=== PATIENT | female | born 1990 | race Caucasian/White ===

== ENCOUNTER 2016-05-31 08:32 | Emergency (ER) | payer SELFPAY ==
[2016-05-31 08:42] VITALS: BP 126/86
--- NOTE | 2016-05-31 09:14 | UC ---
Respiratory Complaint HPI - HPI Summary HPI Summary: SEEN HERE 10 DAYS AGO AND TREATED FOR TONSILLITIS WITH AMOXICILLIN AND PREDNISOLONE. WENT TO ER SEVERAL DAYS LATER STATING NO IMPROVEMENT. DIAGNOSED WITH PHARYNGITIS AND ADVISED TO CONTINUE CURRENT MGMT. PT HERE TODAY STATING SHE HAS PERSISTENT DRY HACKING COUGH. ALSO THINKS SHE HAD THRUSH BUT SX NOW IMPROVED. - History of Current Complaint Chief Complaint: UCRespiratory Stated Complaint: COUGH Time Seen by Provider: 05/31/16 09:13 Hx Obtained From: Patient Hx Last Menstrual Period: 05/19/16 Onset/Duration: Gradual Onset, Lasting Days, Still Present Timing: Constant Severity Initially: Moderate Severity Currently: Moderate Pain Intensity: 3 Pain Scale Used: 0-10 Numeric Character: Cough: Nonproductive Aggravating Factors: Nothing Alleviating Factors: Nothing - Allergies/Home Medications Allergies/Adverse Reactions: Allergies Allergy/AdvReac Type Severity Reaction Status Date / Time Nonoxynol 9 Allergy SKIN Verified 05/24/16 16:14 [From [place] Plus Spermicidal IRRITATION Jelly] Penicillins Allergy Hives Verified 05/24/16 16:14 Sulfamethoxazole AdvReac Vomiting Verified 05/24/16 16:14 w/Trimethoprim [From Bactrim] PMH/Surg Hx/FS Hx/Imm Hx Endocrine History Of: Denies: Diabetes, Thyroid Disease Cardiovascular History Of: Reports: Hypertension - preaclampsia during first , 2008 Denies: Cardiac Disorders, Pacemaker/ICD Respiratory History Of: Denies: COPD, Asthma GI/ History Of: Reports: Kidney Stones - ABOUT 2 MONTHS AGO Denies: Gastroesophageal Reflux, Renal Disease Neurological History Of: Reports: Migraine Denies: CVA, Dementia, Seizures Psychological History Of: Reports: Anxiety - STATES HAS PANIC ATTACKS Other History Of: Negative For: Anticoagulant Therapy - Surgical History Surgical History: Yes Surgery Procedure, Year, and Place: AGE 9MONTHS- TUBES PLACED. EPIDURAL WITH PREGNANCIES - Family History Known Family History: Negative: Cardiac Disease, Hypertension, Diabetes - Social History Alcohol Use: Occasionally Alcohol Amount: 2X/WEEK Substance Use Type: None Smoking Status (MU): Current Every Day Smoker Type: Cigarettes Amount Used/How Often: 1/2 PPD Household Exposure Type: Cigarettes Review of Systems Constitutional: Negative Eyes: Negative ENT: Sore Throat, Ear Ache Respiratory: Cough Cardiovascular: Negative Gastrointestinal: Negative All Other Systems Reviewed And Are Negative: Yes Physical Exam Triage Information Reviewed: Yes Appearance: Well-Appearing, No Pain Distress, Well-Nourished Vital Signs: Initial Vital Signs Temp 97.3 F 05/31/16 08:38 Pulse 129 05/31/16 08:38 Resp 18 05/31/16 08:38 BP 126/86 05/31/16 08:38 Pulse Ox 97 05/31/16 08:38 Vital Signs Reviewed: Yes Eyes: Positive: Conjunctiva Clear ENT: Positive: Hearing grossly normal, Pharyngeal erythema, TMs normal, Other: - FLUID BEHIND LEFT TM. Negative: Tonsillar swelling, Tonsillar exudate, Trismus, Muffled/hoarse voice Neck: Positive: Supple, Nontender, Enlarged Nodes @ - MILD SPFL CERVICAL LAD Respiratory Exam: Normal Cardiovascular: Positive: Tachycardia Abdomen Description: Positive: Soft Musculoskeletal: Positive: No Edema Neurological: Positive: Alert Psychological: Positive: Age Appropriate Behavior Skin: Negative: rashes UC Diagnostic Evaluation - Laboratory O2 Sat by Pulse Oximetry: 97 Respiratory Course/Dx - Course Course Of Treatment: OFFERED AZITH - PT DECLINED. ADVISED TO MONITOR HEART RATE. HYDRATE. FOLLOW-UP IF NEEDED. - Differential Dx/Diagnosis Provider Diagnoses: POST VIRAL COUGH Discharge - Discharge Plan Condition: Stable Disposition: HOME Patient Education Materials: Acute Cough (ED) Referrals: Merritt Ramirez MD [Primary Care Provider] - If Needed Additional Instructions: POST INFECTIOUS/POST VIRAL COUGH CAN LAST FOR WEEKS. OKAY TO USE OTC COUGH SUPPRESSANTS AND LOZENGES. FOLLOW-UP PCP IF NEEDED.
== END 2016-05-31 09:30 | disposition home or self-care (01) ==
LOC: UCEAST 08:32
DX: R05 Cough (principal); Z88.0 Allergy status to penicillin; Z88.2 Allergy status to sulfonamides; Z88.8 Allergy status to other drugs, medicaments and biological substances; F17.210 Nicotine dependence, cigarettes, uncomplicated
CPT/HCPCS: 99211; G0463

== ENCOUNTER 2019-05-14 07:28 | Emergency (ER) | payer SELFPAY ==
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
[2019-05-14 08:05] LABS: ABS Basophils 0.1 10^3/ul (0-0.2); ABS Eosinophils 0.2 10^3/ul (0-0.6); ABS Lymphocytes 3.3 10^3/ul (1.0-4.8); ABS Neutrophils 5.4 10^3/ul (1.5-7.7); Hematocrit 43 % (35-47); Hemoglobin 15.3 g/dL (12.0-16.0); Lymphocyte % 33.3 %; Mean Corpuscular HGB Conc 35 g/dL (31-36); Mean Corpuscular Hemoglobin 32 pg (27-31); Mean Corpuscular Volume 92 fL (80-97); Mean Platelet Volume 7.5 fL (7.4-10.4); Nucleated Red Blood Cells % 0.2; Platelet Count 389 10^3/uL (150-450); Red Blood Count 4.71 10^6 /uL (3.70-4.87); Red Cell Distribution Width 13 % (10-15)
[2019-05-14 08:13] LABS: Anion Gap 10 mmol/L (2-11); BUN/Creatinine Ratio 18.4 (8-20); Blood Urea Nitrogen 16 mg/dL (6-24); CO2 Carbon Dioxide 25 mmol/L (22-32); Chloride 106 mmol/L (101-111); EGFR African American 92.5 (>60); EGFR Non-African American 76.4 (>60); Glucose 93 mg/dL (70-100); Potassium 3.5 mmol/L (3.5-5.0); Sodium 141 mmol/L (135-145)
[2019-05-14 08:22] LABS: HCG Pregnancy < 0.60 mIU/mL
[2019-05-14 08:38] LABS: Alcohol 263 mg/dL (<10)
[2019-05-14] MEDS: hydrOXYzine HCL TAB* 25 MG PO ONE (09:00)
[2019-05-14] MEDS: Ibuprofen TAB* 600 MG PO ONE (09:06)
[2019-05-14 10:07] VITALS: BP 128/97
== END 2019-05-14 09:46 | disposition home or self-care (01) ==
LOC: ED 07:28
DX: S01.112A Laceration without foreign body of left eyelid and periocular area, initial encounter (principal); S01.311A Laceration without foreign body of right ear, initial encounter; F10.929 Alcohol use, unspecified with intoxication, unspecified; R00.0 Tachycardia, unspecified; Y04.8XXA Assault by other bodily force, initial encounter; Y92.9 Unspecified place or not applicable; F41.9 Anxiety disorder, unspecified; F17.210 Nicotine dependence, cigarettes, uncomplicated; Z88.0 Allergy status to penicillin; Z88.1 Allergy status to other antibiotic agents; Z88.2 Allergy status to sulfonamides
CPT/HCPCS: 12014; 36415; 70450; 80048; 80320; 84702; 85025; 99283; A9270-GY; G0480